=== PATIENT | male | born 1990 | race Caucasian/White ===

== ENCOUNTER 2017-03-13 16:16 | Emergency (ER) | payer SELFPAY ==
[~2017-03-13] VITALS: Ht 182.9 cm; Wt 68.0 kg
[2017-03-13 16:35] VITALS: BP 130/79
== END 2017-03-13 16:36 | disposition left against medical advice (07) ==
LOC: ER 16:16
DX: Z53.29 Procedure and treatment not carried out because of patient's decision for other reasons (principal); T40.1X2A Poisoning by heroin, intentional self-harm, initial encounter